=== PATIENT | male | born 1940 | race Caucasian/White ===

== ENCOUNTER 2019-05-12 10:28 | Inpatient (IN) | payer OTHER ==
[~2019-05-12] VITALS: Ht 185.4 cm; Wt 104.3 kg
[2019-05-12 11:06] LABS: BASOPHILS % 0.1 % (0.0-1.0); EOSINOPHILS % 0.1 % (0.0-6.0); HEMOGLOBIN 12.8 g/dL (14.0-18.0); LYMPHOCYTES # (AUTO) 0.6 (1.0-3.2); MEAN CORPUSCULAR HEMOGLOBIN 30.7 pg (28-32); MEAN CORPUSCULAR HGB CONC 33.7 g/dL (31-35); MEAN CORPUSCULAR VOLUME 91.1 fL (81-99); MONOCYTES % 6.6 % (4.4-11.3); NEUTROPHILS # (AUTO) 12.6 (2.1-6.9); NEUTROPHILS % 87.6 % (38.7-80.0); PLATELET COUNT 249 x10e3/uL (140-360); RED BLOOD COUNT 4.17 x10e6/uL (4.3-5.7); RED CELL DISTRIBUTION WIDTH 14.3 % (11.7-14.4)
[2019-05-12 11:19] LABS: INR 1.12; PROTHROMBIN TIME 14.9 seconds (11.9-14.5)
[2019-05-12 11:20] LABS: PARTIAL THROMBOPLASTIN TIME 35.8 seconds (23.8-35.5)
[2019-05-12 11:28] LABS: ALBUMIN 2.7 g/dL (3.5-5.0); ALBUMIN/GLOBULIN RATIO 0.7 (0.8-2.0); ANION GAP 18.5 mmol/L (8-16); CALCIUM 8.8 mg/dL (8.4-10.2); CREATININE, SERUM 1.48 mg/dL (0.72-1.25); POTASSIUM 3.5 mmol/L (3.5-5.1)
[2019-05-12 11:34] LABS: CREATINE KINASE MB 3.6 ng/mL (0-5.0)
[2019-05-12] MEDS ORDERED: CEFEPIME 2 GM/NS 0.9% 100 ML 100 ML IV SCH (11:45)
[2019-05-12] MEDS ORDERED: VANCOMYCIN 1GM/NS 250 ML 250 ML IV ONE (11:45)
--- NOTE | 2019-05-12 11:50 | NUR ---
PT BROUGHT BACK TO RANDOLPH Schreiber; JERI DURANT AT BEDSIDE FOR PT RE-EVAL.
[2019-05-12] MEDS ORDERED: SODIUM CHLORIDE 0.9% 1000ML 1,000 ML ONE (12:02)
[2019-05-12] MEDS: SODIUM CHLORIDE 0.9% 1000ML 1,000 ML, SODIUM CHLORIDE 0.9% 1000ML 1,000 ML IV SCH ×4 (12:02→17:18)
[2019-05-12 13:41] LABS: BILIRUBIN,URINE NEGATIVE (NEGATIVE); CLARITY,URINE CLEAR (CLEAR); COLOR,URINE YELLOW (YELLOW); KETONES,URINE NEGATIVE (NEGATIVE); LEUKOCYTE ESTERASE ,URINE NEGATIVE (NEGATIVE); NITRITE,URINE NEGATIVE (NEGATIVE); PROTEIN,URINE DIPSTICK NEGATIVE (NEGATIVE); URINE UROBILINOGEN 0.2 mg/dL (0.2 - 1)
--- NOTE | 2019-05-12 13:41 | Diagnostic Imaging Report ---
EXAM: CT Abdomen and Pelvis WITH intravenous contrast INDICATION: Nausea, vomiting, diarrhea COMPARISON: None. TECHNIQUE: Abdomen and pelvis were scanned utilizing a multidetector helical scanner from the lung base to the pubic symphysis after administration of IV contrast. Coronal and sagittal reformations were obtained. Routine protocol was performed. Scan was performed during portal venous phase. IV CONTRAST: 100mL of Isovue 370 ORAL CONTRAST: Water RADIATION DOSE: Total DLP: 800.2 mGy*cm Dose modulation, iterative reconstruction, and/or weight based adjustment of the mA/kV was utilized to reduce the radiation dose to as low as reasonably achievable. FINDINGS: LOWER THORAX: Groundglass airspace opacities at the dependent right lower lobe, possibly reflecting aspiration or pneumonia. Bibasilar dependent subsegmental atelectasis. 1.2 cm left lower lobe thin-walled cyst. Small sliding hiatal hernia. HEPATOBILIARY: Mild diffuse hepatic steatosis. No focal liver lesion. No biliary ductal dilation. Normal gallbladder. SPLEEN: No splenomegaly. PANCREAS: 1.9 cm cystic lesion along the posterior pancreatic body. No ductal dilation. ADRENALS: No adrenal nodules. KIDNEYS/URETERS: No hydronephrosis, stones, or solid mass lesions. PELVIC ORGANS/BLADDER: Unremarkable. PERITONEUM / RETROPERITONEUM: No free air or fluid. LYMPH NODES: No lymphadenopathy. VESSELS: Scattered atherosclerotic calcifications of the nonaneurysmal abdominal aorta and major branches. GI TRACT: Sigmoid and descending colon diverticulosis without CT evidence of diverticulitis. No abnormal bowel wall thickening. No bowel obstruction. Normal appendix. BONES AND SOFT TISSUES: No acute osseous injury. No suspicious lytic or blastic lesions. Mild degenerative changes of the lower lumbar spine. IMPRESSION: Groundglass airspace opacities at the dependent right lower lobe possibly reflects aspiration or pneumonia. 1.9 cm cystic lesion along the posterior pancreatic body. Differential includes pseudocyst, pancreas axis, or intraductal papillary mucinous neoplasm. Colonic diverticulosis. No CT evidence of diverticulitis. Mild hepatic steatosis. Signed by: Meghan Bey MD on 05/12/2019 1:37 PM
--- NOTE | 2019-05-12 13:58 | NUR ---
DR ARCEO AND Ann SALAMANCA,DIRECTOR STYLE AT BEDSIDE DISCUSSING THE CURRENT PLAN OF CARE WITH PATIENT AND FAMILY,VERBALIZED UNDERSTANDING. NO SIGNS OF ACUTE DISTRESS NOTED AT THIS TIME.
[2019-05-12 14:11] LABS: EPITHELIAL CELLS,URINE RARE /LPF; RBC,URINE 0-5 /HPF (0-5)
--- NOTE | 2019-05-12 15:37 | Diagnostic Imaging Report ---
EXAMINATION: CHEST 2 VIEWS INDICATION: Pneumonia. COMPARISON: Abdomen and pelvis CT of earlier the same day. FINDINGS: LINES/TUBES:None LUNGS:The lungs are well-inflated. There are multifocal patchy opacities in the right lung. PLEURA:No pleural effusion or pneumothorax. MEDIASTINUM:The cardiomediastinal silhouette appears normal in size and shape. BONES/SOFT TISSUES:No acute osseous injury. ABDOMEN:No free air under the diaphragm. IMPRESSION: Multifocal patchy opacities in the right lung are compatible with aspiration and/or pneumonia in the proper clinical setting. RECOMMENDATIONS: Follow-up chest radiograph in 6-8 weeks to assess for resolution. Signed by: Meghan Bey MD on 05/12/2019 3:33 PM
[2019-05-12] MEDS ORDERED: DEXTROSE 50% SYRINGE 50 ML IV PRN (15:45)
--- OUTSIDE RECORDS SUMMARY | 2019-05-12 16:05 | XMS REPORT ---
[facility] Address Unknown Phone Unavailable Care Team Providers Care Sales Service Representative Name Role Phone Thierry ARCEO Unavailable Unavailable Problems This patient has no known problems. Allergies, Adverse Reactions, Alerts This patient has no known allergies or adverse reactions. Medications This patient has no known medications. Results Test Description Test Time Test Comments Text Results Atomic Results Result Comments CHEST 2 VIEWS 2019-05-12 15:32:00 [facility] [address] [place] [address] Patient Name: CANDY GARCIA MR #: [id number] : 1940 Age/Sex: 79/M Req #: [id number] Adm Physician: Ordered by: NIMISHA SALAMANCA VINYL TOP INSTALLER Report #: [id number] Location: ER Room/Bed: Procedure: [id number] DX/CHEST 2 VIEWS Exam Date: 05/12/19 Exam Time: 1515 REPORT STATUS: Signed EXAMINATION: CHEST 2 VIEWS INDICATION: Pneumonia. COMPARISON: Abdomen and pelvis CT of earlier the same day. FINDINGS: LINES/TUBES:None LUNGS:The lungs are well-inflated. There are multifocal patchy opacities in the right lung. PLEURA:No pleural effusion or pneumothorax. MEDIASTINUM:The cardiomediastinal silhouette appears normal in size and shape. BONES/SOFT TISSUES:No acute osseous injury. ABDOMEN:No free air under the diaphragm. IMPRESSION: Multifocal patchy opacities in the right lung are compatible with aspiration and/or pneumonia in the proper clinical setting. RECOMMENDATIONS: Follow-up chest radiograph in 6-8 weeks to assess for resolution. Signed by: Justin Lopes MD on 05/12/2019 3:33 PM Dictated By: JUSTIN LOPES MD 32 Transcribed By: GERMANIA on 05/12/191532 COPY TO: NIMISHA SALAMANCA NP CT ABDOMEN/PELVIS W 2019-05-12 13:28:00 [place] [address] Patient Name: CANDY GARCIA MR #: [id number] : 1940 Age/Sex: 79/M Req #: [id number] Adm Physician: Ordered by: NIMISHA SALAMANCA NP Report #: [id number] Location: ER Room/Bed: Procedure: [id number] CT/CT ABDOMEN/PELVIS W Exam Date: 05/12/19 Exam Time: 1200 REPORT STATUS: Signed EXAM: CT Abdomen and Pelvis WITH intravenous contrast INDICATION: Nausea, vomiting, diarrhea COMPARISON: None. TECHNIQUE: Abdomen and pelvis were scanned utilizing a multidetector helical scanner from the lung base to the pubic symphysis after administration of IV contrast. Coronal and sagittal reformations were obtained. Routine protocol was performed. Scan was performed during portal venous phase. IV CONTRAST: 100mL of Isovue 370 ORAL CONTRAST: Water RADIATION DOSE: Total DLP: 800.2 mGy*cm Dose modulation, iterative reconstruction, and/or weight based adjustment of the mA/kV was utilized to reduce the radiation dose to as low as reasonably achievable. FINDINGS: LOWER THORAX: Groundglass airspace opacities at the dependent right lower lobe, possibly reflecting aspiration or pneumonia. Bibasilar dependent subsegmental atelectasis. 1.2 cm left lower lobe thin-walled cyst. Small sliding hiatal hernia. HEPATOBILIARY: Mild diffuse hepatic steatosis. No focal liver lesion. No biliary ductal dilation. Normal gallbladder. SPLEEN: No splenomegaly. PANCREAS: 1.9 cm cystic lesion along the posterior pancreatic body. No ductal dilation. ADRENALS: No adrenal nodules. KIDNEYS/URETERS: No hydronephrosis, stones, or solid mass lesions. PELVIC ORGANS/BLADDER: Unremarkable. PERITONEUM / RETROPERITONEUM: No free air or fluid. LYMPH NODES: No lymphadenopathy. VESSELS: Scattered atherosclerotic calcifications of the nonaneurysmal abdominal aorta and major branches. GI TRACT: Sigmoid and descending colon diverticulosis without CT evidence of diverticulitis. No abnormal bowel wall thickening. No bowel obstruction. Normal appendix. BONES AND SOFT TISSUES: No acute osseous injury. No suspicious lytic or blastic lesions. Mild degenerative changes of the lower lumbar spine. IMPRESSION: Groundglass airspace opacities at the dependent right lower lobe possibly reflects aspiration or pneumonia. 1.9 cm cystic lesion along the posterior pancreatic body. Differential includes pseudocyst, pancreas axis, or intraductal papillary mucinous neoplasm. Colonic diverticulosis. No CT evidence of diverticulitis. Mild hepatic steatosis. Signed by: Justin Lopes MD on 05/12/2019 1:37 PM Dictated By: JUSTIN LOPES MD [id number] Transcribed By: GERMANIA on 05/12/19 0620 COPY TO: NIMISHA SALAMANCA NP
[2019-05-12] MEDS: INSULIN REGULAR, HUMAN 100 UNIT/1 ML 3ML VIAL SQ SCH ×2 (16:30→20:32)
[2019-05-12 17:32] VITALS: BP 145/80
[2019-05-12] MEDS ORDERED: SODIUM CHLORIDE 0.9% 250ML 250 ML ONE (17:37)
[2019-05-12] MEDS: PIPER-TAZ 3.375 GM 50 ML IV SCH ×2 (18:11→18:22)
[2019-05-12] MEDS ORDERED: LOSARTAN POTAS100 MG PO (18:32)
[2019-05-12] MEDS ORDERED: METFORMIN HCL500 M2 PO (18:32)
[2019-05-12 18:33] VITALS: BP 145/80
[2019-05-12] MEDS: AZITHROMYCIN 500MG/NS 250 ML 250 ML IV SCH (18:40)
[2019-05-12] MEDS ORDERED: IOPAMIDOL 370 MG/ML 200 ML INFUS..BTL INJ ONE (19:11)
[2019-05-12] MEDS ORDERED: SODIUM CHLORIDE 0.9% 50ML 50 ML ONE (19:11)
[2019-05-12 20:40] VITALS: BP 143/75
[2019-05-12 21:19] VITALS: BP 143/75
[2019-05-12] MEDS ORDERED: ACETAMINOPHEN 325 MG TAB PO PRN (22:30)
[2019-05-12] MEDS ORDERED: BENZONATATE 100 MG CAP PO PRN (22:30)
[2019-05-12] MEDS ORDERED: ALBUTEROL/IPRATROPIUM 3 ML NEB NEB PRN (22:30)
[2019-05-12] MEDS ORDERED: ONDANSETRON HCL INJ 2MG/ML 2ML 2 MG/ML VIAL IV PRN (22:30)
[2019-05-12] MEDS ORDERED: AMLODIPINE BESYLATE 5 MG TAB PO ONE (22:30)
[2019-05-12 22:33] LABS: CREATINE KINASE MB 5.1 ng/mL (0-5.0)
--- NOTE | 2019-05-12 23:31 | Diagnostic Imaging Report ---
CT chest without enhancement CPT code: 93380 INDICATION: Pneumonia TECHNIQUE: Thin collimation axial images obtained from the thoracic inlet to the level of the diaphragm without intravenous contrast. Dose reduction techniques used: Automated exposure control, adjustment of the mAs and/or kVp according to patient size, standardized low-dose protocol, and/or iterative reconstruction technique. RADIATION DOSE: Total DLP: 553.22 mGy*cm Estimated effective dose: (DLP x 0.015 x size factor) mSv CTDIvol has been reviewed. It is below the limits set by the Radiation Protocol Committee (RPC). COMPARISON: CT abdomen 1215 hours, chest x-ray 1508 hours. CHEST FINDINGS: Lymph nodes: No enlarged axillary or supraclavicular lymph nodes. Enlarged right paratracheal lymph nodes measure up to 1.5 x 3.0 cm. Anterior mediastinal lymph node is 14 mm. Subcarinal lymph node measures 1.8 x 2.6 cm. Hilar lymphadenopathy cannot be adequately assessed given the absence of intravenous contrast. Thyroid: Normal in size without mass in the visualized parenchyma.. Mediastinum: The heart is normal in size with calcifications of the coronary arteries, particularly the LAD. There are prominent pericardial fat pads. No pericardial effusion. There is a small hiatal hernia. Lungs: Right: Centrilobular and paraseptal emphysema. Groundglass airspace opacities in the upper and lower lobes. No discrete mass. Left: Mild paraseptal emphysema. Noncalcified nodule in the lateral lower lobe measures 4 mm. There is scarring of the anterior upper lobe adjacent to the pleura. An air cyst in the lower lobe with thin david measures 18 mm. Airways: Cylindrical bronchiectasis and mild bronchial wall thickening. No intraluminal filling defects. Pleura: No pleural effusion or pleural based mass. ABDOMEN FINDINGS: Fatty atrophy of the pancreas. Steatosis. No mass in the visualized portions of the liver. The spleen is enlarged measuring 14.1 cm in length. Nodule in the apex of the left adrenal gland measures 10 mm and -7 Hounsfield units consistent with an adenoma. The right adrenal gland is normal. Bones: Degenerative changes of the spine. No focal osseous lesions.. IMPRESSION: 1. Centrilobular and paraseptal emphysema, right lung predominant. 2. Diffuse groundglass opacities in the right lung may represent interstitial pneumonia or hypersensitivity pneumonitis or early pulmonary fibrosis. Mediastinal lymphadenopathy may represent an infectious/inflammatory process. Recommend follow-up CT in 3-4 months to document interval change/resolution. 3. Steatosis and splenomegaly. Left adrenal adenoma. Signed by: Dr. Yrn Rowell MD on 05/12/2019 11:27 PM
[2019-05-13] VITALS (7 sets, daily range): BP systolic 110–137; BP diastolic 50–73
[2019-05-13] MEDS: ALBUTEROL/IPRATROPIUM 3 ML NEB NEB SCH ×4 (01:00→19:52)
[2019-05-13] MEDS: PIPER-TAZ 3.375 GM 50 ML IV SCH ×4 (02:18→20:45)
[2019-05-13] MEDS ORDERED: AMLODIPINE BESYLATE 5 MG TAB PO SCH (06:00)
[2019-05-13 06:04] LABS: CREATINE KINASE MB 3.9 ng/mL (0-5.0)
--- NOTE | 2019-05-13 07:00 | NUR ---
BEDSIDE SHIFT REPORT RECEIVED FROM THE SHUTTLER RN. PT DENIES NEEDS AT THIS TIME.
[2019-05-13] MEDS: INSULIN REGULAR, HUMAN 100 UNIT/1 ML 3ML VIAL SQ SCH ×4 (07:30→20:47)
[2019-05-13] MEDS: AMLODIPINE BESYLATE 5 MG TAB PO SCH (09:26)
[2019-05-13] MEDS: BENZONATATE 100 MG CAP PO SCH ×3 (09:27→20:45)
[2019-05-13] MEDS ORDERED: GADOBENATE DIMEGLUMINE 1 ML IV ONE (09:51)
--- NOTE | 2019-05-13 11:25 | NUR ---
PT OFF UNIT FOR PROCEDURE IN SAFE CONDITION.
[2019-05-13] MEDS: AZITHROMYCIN 500MG/NS 250 ML 250 ML IV SCH (14:26)
--- NOTE | 2019-05-13 16:58 | History and Physical ---
PRIMARY CARE PHYSICIAN: . CHIEF COMPLAINT: Coughing, fever, breathing, difficulty for the past few weeks, worsening past few days. HISTORY OF PRESENT ILLNESS: The patient is a 79-year-old male, came in with increasing shortness of breath and wheezing. The patient also has some cough as well. The patient is stable. He had a CT scan of chest x-ray shown multilobe pneumonia. The patient is otherwise stable. Incidental finding consistent with also a pancreatic lesion. The patient is now workup for the lesion as well. PAST MEDICAL HISTORY: Hypertension, diabetes type 2, and dyslipidemia. PAST SURGICAL HISTORY: Noncontributory. SOCIAL HISTORY: The patient is an ex-smoker. No alcohol consumption. No recreational drug use. Very good family support. ALLERGIES: NO KNOWN ALLERGIES. HOME MEDICATIONS: List is reviewed. REVIEW OF SYSTEMS: Coughing and shortness of breath much improved with antibiotic and nebulizer treatment. PHYSICAL EXAMINATION: VITAL SIGNS: Temperature is 98, blood pressure 117/68, pulse rate is 85, respirations 18. GENERAL: The patient is no acute distress. HEENT: Normocephalic, atraumatic. Anicteric. NECK: Supple, grossly. PULMONARY: Diminished breath sounds. CARDIOVASCULAR: Regular rate and rhythm. ABDOMEN: Soft, obese. EXTREMITIES: No cyanosis or edema. NEUROLOGIC: No focal deficit. LABORATORY DATA: WBC 14, hemoglobin 13, hematocrit 38, platelets 249. Urinalysis unremarkable. Coagulation; PT is 15, PTT 36. Chemistry; sodium is 131, potassium 3.5, chloride 95, bicarb 21, BUN 18, creatinine 1.4, glucose is 164. Lactic acid is 30. Chest x-rays shown pneumonia confirmed with CT scan of the chest show emphysema. Right lung predominant emphysema, diffuse ground-glass opacity in right lung may represent interstitial pneumonia or hypersensitivity pneumonitis or early pulmonary fibrosis. There is mediastinal lymphadenopathy. On the CT of abdomen and pelvis, incidental finding of a 1.9 cm cystic lesion along the posterior pancreatic body. MRI is obtained. IMPRESSION: 1. Ground-glass airspace opacity consistent with atypical pneumonia with acute exacerbation of chronic obstructive pulmonary disease, emphysema. 2. 1.9 cm cystic lesion along the posterior pancreatic body. PLAN: MRI of the body. Repeat lab work. Antibiotics. Nebulizer treatment. Home medication. MD ANTONELLA Rubio/NIKKIE /[id number]
--- NOTE | 2019-05-13 19:00 | NUR ---
BEDSIDE SHIFT REPORT GIVEN TO THE LASER PRINTING OPERATOR RN. PT DENIED FURTHER NEEDS.
[2019-05-14] VITALS (7 sets, daily range): BP systolic 108–153; BP diastolic 66–81
[2019-05-14] MEDS: ALBUTEROL/IPRATROPIUM 3 ML NEB NEB SCH ×5 (01:00→21:00)
[2019-05-14] MEDS: PIPER-TAZ 3.375 GM 50 ML IV SCH ×4 (02:27→20:30)
[2019-05-14 05:55] LABS: BASOPHILS % 0.1 % (0.0-1.0); EOSINOPHILS # (AUTO) 0.2 (0.0-0.4); EOSINOPHILS % 2.2 % (0.0-6.0); HEMOGLOBIN 11.1 g/dL (14.0-18.0); LYMPHOCYTES # (AUTO) 0.9 (1.0-3.2); LYMPHOCYTES % 11.2 % (18.0-39.1); MEAN CORPUSCULAR HEMOGLOBIN 31.2 pg (28-32); MEAN CORPUSCULAR HGB CONC 33.6 g/dL (31-35); MEAN CORPUSCULAR VOLUME 92.7 fL (81-99); MONOCYTES # (AUTO) 0.5 (0.2-0.8); NEUTROPHILS # (AUTO) 6.2 (2.1-6.9); NEUTROPHILS % 79.2 % (38.7-80.0); PLATELET COUNT 237 x10e3/uL (140-360); RED BLOOD COUNT 3.56 x10e6/uL (4.3-5.7); RED CELL DISTRIBUTION WIDTH 14.4 % (11.7-14.4)
[2019-05-14 06:15] LABS: ANION GAP 15.3 mmol/L (8-16); BLOOD UREA NITROGEN 14 mg/dL (7-26); BUN/CREATININE RATIO 13 (6-25); CARBON DIOXIDE 22 mmol/L (22-29); CHLORIDE 102 mmol/L (98-107); CREATININE, SERUM 1.08 mg/dL (0.72-1.25); EST GLOMERULAR FILTRATION RATE > 60 ML/MIN (60-); GLUCOSE 175 mg/dL (74-118); POTASSIUM 3.3 mmol/L (3.5-5.1); SODIUM 136 mmol/L (136-145)
--- NOTE | 2019-05-14 06:57 | NUR ---
BEDSIDE SHIFT REPORT GIVEN TO ONCOMING NURSE.PT RESTING IN BED WITH NO S/S OF DISTRESS.
--- NOTE | 2019-05-14 07:00 | NUR ---
BEDSIDE SHIFT REPORT RECEIVED FROM THE MANAGER GIFT RN. PT DENIES NEEDS AT THIS TIME.
[2019-05-14] MEDS: INSULIN REGULAR, HUMAN 100 UNIT/1 ML 3ML VIAL SQ SCH ×4 (07:30→20:37)
[2019-05-14] MEDS: BENZONATATE 100 MG CAP PO SCH ×3 (09:00→20:37)
[2019-05-14] MEDS: AMLODIPINE BESYLATE 5 MG TAB PO SCH (09:00)
[2019-05-14] MEDS: AZITHROMYCIN 500MG/NS 250 ML 250 ML IV SCH (13:44)
--- NOTE | 2019-05-14 15:30 | NUR ---
LAC 20G IV REMOVED DUE TO LEAKAGE. TIP INTACT. NO BLEEDING NOTED. DRESSING APPLIED. NEW IV STARTED ON RH 20G. PT DENIED FURTHER NEEDS.
[2019-05-14] MEDS ORDERED: POTASSIUM CHLORIDE 10MEQ EA PO NR (16:00)
--- NOTE | 2019-05-14 16:30 | NUR ---
CALLED RADIOLOGY AND INFORMED THE MRI REPORT IS NOT UPLOADED YET PER DR. RAMOS
--- NOTE | 2019-05-14 18:58 | NUR ---
BEDSIDE SHIFT REPORT GIVEN TO THE GAS OR PETROLEUM OPERATOR RN. PT DENIED FURTHER NEEDS.
[2019-05-15 00:42] VITALS: BP 112/58
[2019-05-15] MEDS: PIPER-TAZ 3.375 GM 50 ML IV SCH ×2 (02:30→09:07)
--- NOTE | 2019-05-15 05:21 | NUR ---
SPOKE WITH VALERIE IN RADIOLOGY REGARDING PT'S MRI ABDOMEN REPORT.VALERIE STATED THAT HE SPOKE TO THE RADIOLOGIST AND THAT REPORT WILL BE UP SOON.NOTIFIED CHARGE NURSE.
--- NOTE | 2019-05-15 05:41 | Diagnostic Imaging Report ---
History: Pancreas lesion on CT ^PANCREATIC LESION Comparison: CT abdomen/pelvis 05/12/2019. Technique: Multiplanar, multisequence images of the abdomen were obtained before and after the administration of 20 cc of gadolinium. 3D volume rendered reformation images of the biliary tree were performed. Findings: Images are motion degraded. MRCP: The intra and extrahepatic biliary ducts, cystic duct, common bile duct and the pancreatic duct appear normal. No focal biliary dilatation or stricture identified. The gallbladder is contracted No biliary or gallbladder filling defect identified to suggest calculi. Liver: The hepatic fat fraction is 5.5% consistent with mild steatosis. No evidence of mass Spleen: Measures 14 cm in length. Normal T1 and T2 signal. No mass Pancreas: Diffuse fatty atrophy. Multiple (approximately 7) high T2 signal cysts in the head, body, and tail, the largest measuring 1.5 x 2.6 cm (craniocaudal by transverse) and appears to contain a single septation (series 8, image 31). There are no enhancing components. Because of the motion artifact, communication with the main pancreas duct cannot be determined. Pancreas duct: Not dilated. Kidneys: Right kidney: No hydronephrosis. Several subcentimeter peripelvic cysts. No solid mass. Left kidney: Several peripelvic cysts. No solid mass or hydronephrosis. There is a lower pole accessory renal artery early branching of the main renal artery. Adrenal glands: No mass Lymph nodes: No intra or retroperitoneal adenopathy identified. Bowel: Stomach and visualized portions of the small bowel and large bowel are normal in diameter with normal wall thickness Peritoneum/Retroperitoneum: No free fluid or fluid collection. Lung bases: Right basilar infiltrate. Small bilateral pleural effusions. Visualized portion of the mediastinum is normal. Bones: Normal marrow signal. No focal osseous lesions IMPRESSION: 1. Multiple pancreas cysts, the largest measuring 2.6 cm in largest dimension. The differential remains IPMN or other cystic pancreas neoplasm and pancreas pseudocysts. Annual surveillance is recommended to confirm stability. 2. Mild steatosis. 3. Right basilar infiltrate suggestive of pneumonia. 4. No biliary ductal dilatation or pancreas ductal dilatation. Thank you for your referral. Signed by: Dr. Yrn Rowell MD on 05/15/2019 5:38 AM
[2019-05-15 05:46] VITALS: BP 105/65
--- NOTE | 2019-05-15 07:27 | NUR ---
REPORT GIVEN TO ONCOMING NURSE,WALKING ROUNDS MADE.PT RESTING IN BED WITH NO S/S OF DISTRESS.
[2019-05-15] MEDS: INSULIN REGULAR, HUMAN 100 UNIT/1 ML 3ML VIAL SQ SCH ×2 (07:30→11:30)
[2019-05-15 07:43] VITALS: BP 114/60
--- NOTE | 2019-05-15 07:45 | NUR ---
Received patient this morning, a/ox3, ambulates in room, denies SOB, denies fever will monitor, call light within reach.
--- NOTE | 2019-05-15 09:03 | NUR ---
Consult to Dr. Anderson by Dr. Velasco for pancreatic cyst, called and notified him about consult
[2019-05-15] MEDS: AMLODIPINE BESYLATE 5 MG TAB PO SCH (09:07)
[2019-05-15] MEDS: BENZONATATE 100 MG CAP PO SCH ×2 (09:07→15:22)
[2019-05-15 09:52] VITALS: BP 114/60
--- NOTE | 2019-05-15 11:08 | NUR ---
Consult to Dr. Anderson cancelled per MD orders and patient will f/u with Dr. Steven upon discharge instead. Dr. Anderson has been notified.
[2019-05-15 12:00] VITALS: BP 123/73
[2019-05-15] MEDS: AZITHROMYCIN 500MG/NS 250 ML 250 ML IV SCH (13:28)
--- NOTE | 2019-05-15 15:00 | NUR ---
Patient refused Zosyn as was discharged and wants to go home
[2019-05-15 16:00] VITALS: BP 126/68
--- NOTE | 2019-05-15 16:22 | NUR ---
Patient alert and responsive, completed abx IV, provided with prescriptions, discharge documentation provided, contacts provided for f/u appt r/t pancreatic cyst with Dr. Steven, IV line removed, cath tip in place and dressing applied. Patient discharged.
--- NOTE | 2019-05-16 06:49 | Discharge Summary ---
PRIMARY CARE PHYSICIAN: . FINAL DIAGNOSES: 1. Community-acquired pneumonia. 2. Incidental finding of multiple pancreatic cyst, largest measuring 2.6 cm. 3. Right basilar infiltrate with pneumonia. 4. Mild steatosis. 5. Baseline diabetes. 6. Hypertension. SUMMARY: The patient is a [id number], came in with WBC of 14.3 with fever. The patient had CT scan of abdomen and pelvis and then chest CT found to have pneumonia. The patient also has incidental finding of pancreatic cystic lesion. The patient had an MRI done finding as the above. I discussed with the patient and family as well. The patient will need outpatient workup for possible endoscopic ultrasound for the pancreatic cyst. Recommended consultation with Dr. Rene Steven as an outpatient for further workup. The patient is otherwise stable. He will go home today. Fever has resolved. The patient will take Levaquin 500 mg daily for 5 days. He can take Tessalon Perles as needed for cough. The patient can take Norvasc 5 mg in addition to his home medication for blood pressure control. The patient's son is notified, phone number [phone]. The patient is stable and discharged home today. MD ANTONELLA Rubio/NIKKIE /[id number]
== END 2019-05-15 16:11 | disposition home or self-care (01) | DRG 871 ==
LOC: ER 10:28 → ERHOLD 15:39 → MED/SURG2 16:53
PROVIDERS: ADMIT Internal Medicine; ATTEND Internal Medicine
DX: A41.9 Sepsis, unspecified organism (principal); J18.9 Pneumonia, unspecified organism; J44.1 Chronic obstructive pulmonary disease with (acute) exacerbation; K86.2 Cyst of pancreas; I10 Essential (primary) hypertension; E11.9 Type 2 diabetes mellitus without complications; E78.5 Hyperlipidemia, unspecified; Z87.891 Personal history of nicotine dependence; E88.89 Other specified metabolic disorders; Z79.84 Long term (current) use of oral hypoglycemic drugs
CPT/HCPCS: 36415; 71046; 71250; 74177; 74183; 80048; 80053; 81001; 82150; 82550; 82553; 82948; 83605; 83690; 83735; 84484; 85025; 85610; 85730; 87040; 87086; 93005; 94640; 99284; J0456; J1817; J2543; J3370; J7030; J7050; Q9967